=== PATIENT | female | born 1995 | race Caucasian/White ===

== ENCOUNTER 2016-10-15 09:03 | Emergency (ER) | payer OTHER ==
[2016-10-15 10:31] LABS: HEMOGLOBIN 14.4 gm/dl (12.3-15.3); RED BLOOD COUNT 5.52 M/UL (4.00-5.10)
[2016-10-15 10:54] LABS: BUN/CREATININE RATIO 12 (0-10)
== END 2016-10-15 12:15 | disposition home or self-care (01) ==
LOC: ER1 09:03
PROVIDERS: Physician Assistant
DX: N93.8 Other specified abnormal uterine and vaginal bleeding (principal); Z88.2 Allergy status to sulfonamides
CPT/HCPCS: 36415; 80053; 81001; 84702; 85025; 86900; 86901; 99284; J2930